=== PATIENT | female | born 1995 | race Caucasian/White ===

== ENCOUNTER → 2019-08-10 10:11 | Outpatient (CLI) | payer MEDICAID, SELFPAY ==
--- NOTE | 2019-08-10 10:16 | US_ITS ---
STUDY: ABDOMINAL ULTRASOUND REASON FOR EXAM: Female, 24 years old. RT ABDOMINAL PAIN TECHNIQUE: Transabdominal ultrasound was performed with real-time and static sauceda scale imaging. TECHNICAL QUALITY: Adequate. COMPARISON: None. FINDINGS: Liver: The liver measures 13.0 cm. There is normal echogenicity of the liver. The bile ducts are within normal limits. There is hepatic color flow. The direction of portal flow is hepatopetal. There is no demonstrated mass lesion. Portal vein measurement: Gallbladder: Normal distended gallbladder. The gallbladder wall measures 1.6 mm. There is a positive sonographic Clemons''s sign. There is no pericholecystic fluid. There are multiple echogenic structures within the gallbladder, consistent with multiple gallstones. Common Bile Duct (C.B.D.): The common bile duct measures 3.8 mm. Pancreas: Normal size of the head, body and tail of the pancreas. There is normal echogenicity of the pancreas. There is no demonstrated pancreatic mass or cyst. Spleen: Normal size of the spleen. The spleen measures 10 cm x 5.7 cm x 4.0 cm. Right Kidney: Normal size of the right kidney. The right kidney measures 10.9 cm x 5.7 cm x 3.6 cm. Normal renal cortex. The right cortex measures 1 cm. There is no demonstrated renal mass or cyst. There is an extra-renal pelvis of the right kidney. There is no distention of the renal calyces. Left Kidney: Normal size of the left kidney. The left kidney measures 10 cm x 5.2 cm x 6.5 cm. Normal renal cortex. The left cortex measures 2.5 cm. There is no demonstrated renal mass or cyst. There is no left hydronephrosis. Aorta: Unremarkable. I.V.C.: The IVC is patent. There is no ascites. US/Abdomen Complete IMPRESSION: Multiple gallstones. Positive sonographic Clemons''s sign. Electronically Signed: Harjinder Sommers, at 13:12 EST , Service support ,
== END ==
PROVIDERS: Family Provider Pediatrics; PCP Pediatrics; Referring Provider Nurse Practitioner Pediatrics; Visit Provider Nurse Practitioner Pediatrics
DX: R10.11 Right upper quadrant pain (principal)
CPT/HCPCS: 76700

== ENCOUNTER → 2019-08-19 14:16 | Outpatient (CLI) | payer MEDICAID, SELFPAY ==
[2019-08-15 12:41] VITALS: BMI 30.3
[2019-08-19 14:57] LABS: Absolute Lymphocyte Count 2.17 X10^3/uL (0.83-4.51); Absolute Neutrophil Count 2.9 X10^3/uL (2.0-7.7); Basophil# 0.01 X10^3/uL; Basophil% 0.2 % (0-1); Eosinophil# 0.03 X10^3/uL; Eosinophils% 0.5 % (0-5); Hematocrit 42.8 % (37-47); Hemoglobin 14.3 g/dL (12.0-15.0); Lymphocyte # 2.17 X10^3/ul (4.0); Mean Corp Hgb Conc 33.4 g/dL (32-36); Mean Corpuscular Hgb 28.7 pg (27.0-32.0); Mean Corpuscular Volume 85.9 fL (81-99); Mean Platelet Vol. 9.6 fl (6.2-12.0); Monocyte# 0.47 X10^3/uL; Monocyte% 8.5 % (0-10); NRBC Flagged by Analyzer 0 % (0-5); Neutrophil # 2.87 X10^3/uL (2.7-7.7); Neutrophil % 51.6 % (47-70); Platelet Count 271 K/mm3 (150-450); RBC Distribution Width CV 12.2 % (11.6-14.6); RBC Distribution Width SD 38.2 fl (35.1-43.9); Red Blood Count 4.98 M/mm3 (4.2-5.4); White Blood Count 5.6 K/mm3 (4.4-11.0)
[2019-08-19 15:19] LABS: Erythrocyte Sedimentation Rate 7 mm/hr (0-20)
[2019-08-19 15:40] LABS: ALB/GLOB Ratio 1.1 RATIO (0.9-2.4); AST(SGOT) 13 U/L (15-37); Alanine Aminotransfer ALT/SGPT 20 U/L (13-56); Albumin, Serum 4.5 g/dL (3.2-5.0); Alkaline Phosphatase 60 U/L (45-117); Anion Gap 4 (5-15); BUN 10 mg/dL (7-18); BUN/Creat Ratio 11.2 RATIO (10-20); CRP < 2.90 mg/L (0.0-3.0); Calcium,Total 9.3 mg/dL (8.5-10.1); Chloride 104 mmol/L (98-107); Creatinine, Serum 0.89 mg/dL (0.55-1.02); EST Glomerular Filtration Rate 84 mL/min (>60); Est Glom Filt Rate - Afr Amer 101 mL/min (>60); Globulin 4.1 g/dL (2.2-4.2); Glucose 97 mg/dL (74-106); Lipase 126 U/L (73-393); Potassium 3.8 mmol/L (3.5-5.1); Protein, Total 8.6 g/dL (6.4-8.2); Sodium Level 136 mmol/L (136-145)
== END ==
PROVIDERS: PCP Pediatrics; Referring Provider Surgery; Visit Provider Surgery
DX: K80.20 Calculus of gallbladder without cholecystitis without obstruction (principal)
CPT/HCPCS: 36415; 80053; 83690; 85025; 85652; 86140

== ENCOUNTER → 2019-08-24 08:57 | Outpatient (CLI) | payer MEDICAID, SELFPAY ==
[2019-08-15 12:41] VITALS: BMI 30.3
--- NOTE | 2019-08-24 08:58 | RAD_ITS ---
STUDY: CONTRAST UPPER GI SERIES AND SMALL BOWEL FOLLOW-THROUGH EXAMINATION. REASON FOR EXAM: Female, 24 years old. Right sided burning pain, on and off x 7 weeks -- Diagnosed with Crohn''s disease in 2010 -- loss of appetite -- pt refused small bowel series and refused to drink anymore barium for UGI FLUOROSCOPY TIME (if supplied): ( 61 seconds ) minutes/seconds TECHNIQUE: The patient ingested barium. Imaging of the esophagus, stomach and duodenum was obtained. COMPARISON: None. FINDINGS: The esophagus is unremarkable. There is no evidence of a mass lesion. No evidence of gastroesophageal reflux. The stomach and duodenum are unremarkable. No evidence of ulceration. No mass lesion is seen. The patient refused to drink further barium. The small bowel follow-through examination was canceled. RAD/Upper GI Dual Contrast IMPRESSION: Unremarkable esophagus and stomach. The patient refused the small bowel follow-through examination. Electronically Signed: Harjinder Sommers, at 14:41 EST , Service support ,
== END ==
PROVIDERS: PCP Pediatrics; Referring Provider Surgery; Visit Provider Surgery
DX: R10.9 Unspecified abdominal pain (principal)
CPT/HCPCS: 74246

== ENCOUNTER 2023-04-01 21:15 | Inpatient (IN) | payer MEDICAID, SELFPAY ==
--- NOTE | 2023-04-01 21:37 | HP.PCM.OB_ITS ---
History and Physical Date of Admission: 04/01/23 28-year-old s/p home delivery on 03/31/23 presented to [facility] for admission for her . Upon arrival here she had passage of a large clot which according to nursing staff appeared to be possible placenta. Patient throughout the day was refusing admission and refusing to be seen in the ER as well as refusing to be seen and evaluated by staff. Patient eventually agreed to admission and evaluation. Patient reports that she delivered a viable on 03/31/2023. She states that she had a planned home delivery without any medical personnel available. She states that she has a history of rapid labors and she plans this as she thought that everything would go without any complication as she delivered her last 1 at home without any problems. She states that she delivered the child and then her clamped the cord cut the cord and then gently pulled on the cord to deliver the placenta. She states that she felt that the placenta was delivered intact but is not sure because the placenta was then disposed of by her dogs in the neal. Patient reports that her bleeding has not been significant since arrival other than the one large clot approximately 4 hours ago. She denies any fevers, malodorous discharge, tears in the vaginal or perineal area or other concerns at this time. OBHX: x 3 SOCHX: Marijuana and tobacco use MEDHX: fibromyalgia Exam: GEN: female in NAD ABD: soft, fundus firm Speculum: no lacerations, Tiny clot at os, no placental tissue noted. TISSUE in question was evaluated- appears to just be a clot not tissue from placenta. Bedside ultrasound: bright white EM stripe,small area of heterogenous area ? clot but no absolute sign of retained POC. Assessment & Plan Assessment/Plan (1) Marijuana use: (2) Limited care: (3) Other curr cond-del w/ complication: PLAN: Plan s/p home delivery, with episode of heavy vaginal bleeding 1) CBC w/ diff 2) Monitor vaginal bleeding 3) Methergine IM then PO x 48hrs 4) UDS consented by patient 5) Tylenol and Motrin for pain 6) VS per protocol
[2023-04-01 21:47] VITALS: BP 138/87; PULSE 92; RESP 16; TEMP 36.6; O2SAT 99
--- NOTE | 2023-04-01 21:54 | NURSING ---
Pt was on Hotel status due to home delivery and infant in SCN. Pt admitted to this evening due to pt having concerns for possible retained placenta. came to bedside, completed a bedside evaluation, Ultrasound, and vaginal speculum exam. new orders were received to admit to , send CBC, Methergine x1 IM then PO, urine drug screen, and routine pp orders
[2023-04-01 22:13] VITALS: BMI 25.2
[2023-04-01 22:13] LABS: Absolute Neutrophil Count 9.7 X10^3/uL (2.0-7.7); Basophil# 0.06 X10^3/uL; Basophil% 0.4 % (0-1); Eosinophil# 0.15 X10^3/uL; Hematocrit 33.1 % (37-47); Lymphocyte % 23.7 % (19-41); Mean Corp Hgb Conc 33.2 g/dL (32-36); Mean Corpuscular Hgb 30.2 pg (27.0-32.0); Mean Corpuscular Volume 90.9 fL (81-99); Mean Platelet Vol. 8.9 fl (6.2-12.0); Monocyte# 0.89 X10^3/uL; Monocyte% 6.2 % (0-10); NRBC Flagged by Analyzer 0 % (0-5); Neutrophil # 9.68 X10^3/uL (2.7-7.7); Neutrophil % 67.5 % (47-70); Platelet Count 356 K/mm3 (150-450); RBC Distribution Width CV 14.4 % (11.6-14.6); Red Blood Count 3.64 M/mm3 (4.2-5.4); White Blood Count 14.4 K/mm3 (4.4-11.0)
[2023-04-01 22:34] VITALS: BP 110/79; PULSE 85; RESP 16; TEMP 36.1; O2SAT 98
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
[2023-04-02 01:24] LABS: Amphetamine Urine VISTA NEGATIVE (<1000 ng/mL); Barbiturate Urine VISTA NEGATIVE (< 200 ng/mL); Benzodiazepine Urine VISTA NEGATIVE (< 200 ng/mL); Cocaine Urine VISTA NEGATIVE (< 300 ng/mL); Ecstacy Urine VISTA NEGATIVE (< 500 ng/mL); Methadone Urine VISTA NEGATIVE (< 300 ng/mL); PCP Urine VISTA NEGATIVE (< 25 ng/mL); THC Urine VISTA POSITIVE (< 50 ng/mL); Vista UDS pH Range 6
--- NOTE | 2023-04-02 03:15 | NURSING ---
report given to PP RN. that rn to assume care of pt at this time
--- NOTE | 2023-04-02 09:33 | PCM.PROGNOTE ---
Subjective Subjective patient seen at bedside, doing well. Patient reports good pain control. lochia mild. reports no further clots. Objective Data Objective Data Vital Signs: Vital Signs Temp Pulse Resp BP Pulse Ox O2 Del Method 97 F L 85 16 110/79 98 Room Air 04/01/23 22:34 04/01/23 22:34 04/01/23 22:34 04/01/23 22:34 04/01/23 22:34 04/01/23 22:34 Oxygen Delivery Method Room Air Weight: 66.224 kg Body Mass Index (BMI) 25.2 Lab / Micro Data 04/01/23 21:45 Labs: Laboratory Results - last 24 hr 04/01/23 21:45: WBC 14.4 H, RBC 3.64 L, Hgb 11.0 L, Hct 33.1 L, MCV 90.9, MCH 30.2, MCHC 33.2, RDW Std Deviation 47.0 H, RDW Coeff of Giancarlo 14.4, Plt Count 356, MPV 8.9, Immature Gran % (Auto) 1.200 H, Neut % (Auto) 67.5, Lymph % (Auto) 23.7, [place] % (Auto) 6.2, Eos % (Auto) 1.0, Baso % (Auto) 0.4, Absolute Neuts (auto) 9.7 H, Absolute Lymphs (auto) 3.40, Nucleated RBC % 0 04/02/23 00:50: Urine Opiates Screen NEGATIVE, Urine Methadone Screen NEGATIVE, Ur Barbiturates Screen NEGATIVE, Ur Phencyclidine Scrn NEGATIVE, Ur Amphetamines Screen NEGATIVE, MDMA (Ecstasy) Screen NEGATIVE, U Benzodiazepines Scrn NEGATIVE, Urine Cocaine Screen NEGATIVE, U Cannabinoids Screen POSITIVE H, Ur Drug Screen Comment Physical Exam Const alert and oriented x3 General Appearance: cooperative HEENT normocephalic Neck General: normal visual inspection GI soft to palpation and non-distended GI Narrative: Fundus firm Extremity normal to inspection and no calf tenderness Skin no rashes or lesions noted Neuro oriented x3 and CN's II-XII intact bilaterally Psych mental status grossly normal Assessment & Plan Assessment/Plan (1) Other curr cond-del w/ complication: (2) Limited care: (3) Marijuana use: (4) Fibromyalgia: PLAN: Plan HD#1 , PPD 2 s/p home delivery- unattended, limited PNC CBC stable, lochia stable consider dc after social work consult
--- NOTE | 2023-04-02 09:51 | DCINST_ITS ---
Discharge Instructions Diet Discharge Diet: No restrictions Activity May resume sexual activity in: 6-8 weeks Dressing / Incision Call your doctor if you observe: Fever of 101 or Higher, Inability to urinate, Using more than 1 pad per hour and Uncontrolled pain Follow Up Care Please Follow Up With: Christy Olson MD When: 1-2 weeks post and again at 6 weeks post . [phone] Test Results: Test results from this visit will be discussed in further detail at your follow- up appointment, if applicable. Discharge Plan Admission Admit Date/Time: 04/01/23 21:15 Attending Provider: Christy Olson Primary Care Provider: Care Physician,Margaret Primary Discharge Orders/Prescriptions Referrals / Follow Up: Care Physician,No Primary [Primary Care Provider] - Disposition Disposition (needs filled in before D/C Order can be placed): Home, Self Care
[2023-04-02 10:00] VITALS: BP 120/83; PULSE 76; RESP 17; TEMP 36
[2023-04-02 10:05] VITALS: PULSE 76; RESP 17
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
--- NOTE | 2023-04-02 14:11 | NURSING ---
This assistant in nursing reviewed the documentation completed by Chikis Shin student nurse.
[2023-04-02 14:15] VITALS: BP 113/77; PULSE 83; RESP 16; TEMP 36.2
== END 2023-04-02 18:30 | disposition home or self-care (01) | DRG 561 ==
PROVIDERS: Admitting Provider Obstetrics & Gynecology; Visit Provider Obstetrics & Gynecology
DX: O72.2 Delayed and secondary postpartum hemorrhage (principal); O99.325 Drug use complicating the puerperium; F12.99 Cannabis use, unspecified with unspecified cannabis-induced disorder; M79.7 Fibromyalgia; O99.893 Other specified diseases and conditions complicating puerperium
CPT/HCPCS: 76815; 80307; 85025

== ENCOUNTER 2025-03-20 17:53 | Emergency (ER) | payer MEDICAID, SELFPAY ==
[2025-03-20 17:54] VITALS: BP 116/75; PULSE 87; RESP 16; TEMP 36.8; O2SAT 100
[2025-03-20 18:14] VITALS: BMI 16.5
[2025-03-20 18:32] LABS: Hematocrit 39.7 % (37-47); Hemoglobin 14.4 g/dL (12.0-15.0); Immature Granulocytes Count 0.020 X10^3/uL (0.0-0.0); Mean Corp Hgb Conc 36.3 g/dL (32-36); Mean Corpuscular Volume 83.8 fL (81-99); Mean Platelet Vol. 9.1 fl (6.2-12.0); NRBC Flagged by Analyzer 0 % (0-5); Platelet Count 338 K/mm3 (150-450); RBC Distribution Width CV 12.4 % (11.6-14.6); RBC Distribution Width SD 38.1 fl (35.1-43.9); Red Blood Count 4.74 M/mm3 (4.2-5.4); White Blood Count 9.4 K/mm3 (4.4-11.0)
[2025-03-20 18:51] LABS: Barbiturate Urine NEGATIVE (< 200 ng/mL); Benzodiazepine Urine NEGATIVE (< 200 ng/mL); PCP Urine NEGATIVE (< 25 ng/mL); THC Urine PRESUMPTIVE POSITIVE (< 50 ng/mL)
[2025-03-20 18:51] LABS: Internal QC Validated? YES +Cl - CLEAR BKGD
[2025-03-20 18:52] LABS: Pregnancy, Serum, hCG Quali. NEGATIVE Negative; Record Kit Lot#, Serum Preg. 947241
[2025-03-20 19:13] LABS: Anion Gap 14 (5-15); BUN 4 mg/dL (4-19); BUN/Creat Ratio 6.4 RATIO (10-20); Calcium,Total 9.5 mg/dL (7.6-11.0); Carbon Dioxide 24.3 mmol/L (21.0-32.0); Chloride 99 mmol/L (98-108); Estimated Creatinine Clearance 104.82 ml/min (50-250); Glucose 98 mg/dL (70-99); Potassium 2.6 mmol/L (3.3-5.1)
[2025-03-20 19:20] LABS: Alcohol, Blood (Medical)-Serum < 10.1 mg/dL (<=10.0)
--- NOTE | 2025-03-20 19:55 | EX.ED.DYSGE1 ---
HPI History of Present Illness Chief Complaint: Suicidal Narrative Narrative: Patient is a 30-year-old female with past medical history of HPV, PTSD, depression, anxiety, GERD, fibromyalgia, Crohn's disease who presents to the emergency department via PD after being pink slipped with a concern for having suicidal ideation. Patient states that she hears voices telling her that she needs a brief, yes and it is time for bed patient denies any specific plan on how she would kill herself but is having these thoughts. PD arrived to a bar where she told them that she had chips in her head. PFSH [facility] Medical History PTSD (post-traumatic stress disorder) HPV (human papilloma virus) infection Asthma depression Depression Anxiety Cholelithiasis Gastric ulcer GERD (gastroesophageal reflux disease) Anxiety and depression Fibromyalgia Crohn's disease Allergy/AdvReac Type Severity Reaction Status Date / Time amoxicillin Allergy Mild rash Verified 03/20/25 18:01 azithromycin Allergy Unknown Verified 03/20/25 18:01 Penicillins Allergy Unknown Verified 03/20/25 18:01 Family History Grandfather Heart disease Surgical History History of surgery History of colonoscopy (~2011) History of esophagogastroduodenoscopy (EGD) (~2011) Social History Smoking Status: Heavy Smoker (>10/day) ROS ROS ED ROS Narrative Constitutional: Denies any headache, lightness, dizziness, fevers, chills Eyes: Denies double vision Cardiovascular: Denies chest pain Respiratory: Denies shortness of breath Abdomen: Denies abdominal pain nausea vomit diarrhea : Denies urinary symptom Neurological: Denies any numbness, wheeze, tingling Musculoskeletal: Denies back pain Skin: Denies any rashes or lesions Psychiatric: Patient states that she is hearing voices and is having thoughts of killing herself however she has no plan. EXAM Physical Exam Narrative Exam Narrative: General: Patient lying in bed rest comfortably did not appear to be in acute distress Head: Atraumatic, normocephalic Eyes: PERRL bilaterally, EOMI bilaterally, no conjunctival injection noted Neck: Soft, supple, trachea midline Cardiovascular: Regular rate and rhythm Respiratory: Clear to auscultation bilaterally Abdomen: Soft, nondistended, no tenderness to palpation Extremities: +5/5 strength noted in the bilateral upper and lower extremities, radial pulses +2/4 in the bilateral extremities, no pedal edema exam Neurological: Patient following commands knew that she was at [facility] year is 2024 Skin: Warm, dry, tact no rashes or lesions noted Const Vital Signs: 03/20/25 17:54 03/20/25 20:47 Temperature 98.3 F Temperature Source Oral Pulse Rate 87 76 Respiratory Rate 16 18 Blood Pressure 116/75 122/74 H Blood Pressure Mean 88 90 Pulse Ox 100 97 Oxygen Delivery Method Room Air Room Air MDM MDM MDM Narrative Medical decision making narrative: Patient is a 30-year-old female who presents to the emergency department the chief complaint of suicidal ideation. On the differential diagnose includes but not limited to suicidal ideation, anxiety, depression, alcohol intoxication. Once workup is obtained reviewed she will be reevaluated. Patient's CBC was reviewed which showed a white blood count of 9.4, he was 14.4, plate count of 338. Patient sodium was 137, potassium was noted to be low indicating hypokalemia 2.6 she was ordered 40 mill equivalents of oral solution as well as intravenous replacement, magnesium level added on. Patient creatinine was 0.55. Patient magnesium level normal at 1.9, test negative. Patient's drug screen showed presumptive positive for cannabis alcohol level less than 10. Crisis will not evaluate the patient until her potassium is normalized. Nursing staff notified me that she is refusing the liquid potassium and the IV and is requesting pills. Patient was ordered 60 mill equivalents of oral supplementation here and she did take this. I went back into discussed with the patient the need for the IV potassium replacement and she states that she will not have an IV placed as she concern for airway verbalized that we will not inject air into her she states that there is always a chance of this and therefore she states that you will not place an IV in me and if you do I will [facility] the hospital. Patient's potassium will be repeated and further supplementation will be provided orally as needed. Patient case will be signed out to overnight provider to follow-up on the repeat potassium and add additional supplementation as needed. Patient once again states that he is suicidal but has no specific plan crisis will evaluate. Lab Data Labs: Laboratory Results - last 24 hr 03/20/25 03/20/25 18:20 18:28 WBC 9.4 RBC 4.74 Hgb 14.4 Hct 39.7 MCV 83.8 MCH 30.4 MCHC 36.3 H RDW Std Deviation 38.1 RDW Coeff of Giancarlo 12.4 Plt Count 338 MPV 9.1 Immature Gran % (Auto) 0.200 Neut % (Auto) 63.9 Lymph % (Auto) 28.2 [place] % (Auto) 6.9 Eos % (Auto) 0.6 Baso % (Auto) 0.2 Absolute Neuts (auto) 6.0 Absolute Lymphs (auto) 2.66 Nucleated RBC % 0 Sodium 137 Potassium 2.6 L* Chloride 99 Carbon Dioxide 24.3 Anion Gap 14 BUN 4 Creatinine 0.55 L Estim Creat Clear Calc 104.82 Est GFR (MDRD) Non-Af 128 BUN/Creatinine Ratio 6.4 L Glucose 98 Calcium 9.5 Magnesium 1.9 Serum , Qual NEGATIVE Urine Opiates Screen NEGATIVE U Buprenorphine Qual NEGATIVE Ur Oxycodone Screen NEGATIVE Urine Methadone Screen NEGATIVE Urine Fentanyl Screen NEGATIVE Ur Barbiturates Screen NEGATIVE Ur Phencyclidine Scrn NEGATIVE Ur Amphetamines Screen NEGATIVE U Benzodiazepines Scrn NEGATIVE Urine Cocaine Screen NEGATIVE U Cannabinoids Screen PRESUMPTIVE POSITIVE Ethyl Alcohol < 10.1 Discharge Plan Triage Chief Complaint: Suicidal ED Provider: Byron Killian Dx/Rx/DC Orders Clinical Impression: Suicidal ideation, Acute hypokalemia, Anxiety, Depression Primary Care Provider: Care Physician,No Primary Referrals: Care Physician,No Primary [Primary Care Provider] - Print Language: Danish
[2025-03-20 20:05] LABS: Magnesium 1.9 mg/dL (1.5-2.2)
[2025-03-20] MEDS: Potassium Chloride Oral Tablet 20 MEQ 60 MEQ PO (20:28)
--- NOTE | 2025-03-20 20:41 | ED.RN ---
Pt refusing to this RN having an IV or IV potassium, pt states this is a basic hospital and air will get in the line and it will kill me. This RN reassured the patient that scenario would not happen. Pt became aggitated and stated there is no way that I will ever allow you to put an IV in me. This nurse reported what the patient stated to Dr. Killian. This nurse also attempted to attach the cardiac cath lab manager to the patient, the patient stated I don't like this the pads are getting hot and you are shocking me. This RN reassured the patient that the cardiac cath lab manager was not capable of shocking her, the pt then ripped off all cardiac leads.
[2025-03-20 20:47] VITALS: BP 122/74; PULSE 76; RESP 18; O2SAT 97
--- NOTE | 2025-03-20 20:51 | ED.RN ---
Pt reports not taking any medication on a daily or as needed basis
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
[2025-03-21 00:23] LABS: Anion Gap 11 (5-15); BUN 4 mg/dL (4-19); BUN/Creat Ratio 6.0 RATIO (10-20); Calcium,Total 9.4 mg/dL (7.6-11.0); Carbon Dioxide 29.1 mmol/L (21.0-32.0); Chloride 98 mmol/L (98-108); Estimated Creatinine Clearance 77.90 ml/min (50-250); Glucose 88 mg/dL (70-99); Potassium 3.5 mmol/L (3.3-5.1)
[2025-03-21 04:00] VITALS: BP 121/73; PULSE 68; RESP 18; O2SAT 99
[2025-03-21 05:11] VITALS: BP 121/73; PULSE 65; RESP 18; TEMP 36.8; O2SAT 99
== END 2025-03-21 07:59 ==
PROVIDERS: Emergency Provider Emergency Medicine; Visit Provider Emergency Medicine
DX: R45.851 Suicidal ideations (principal); E87.6 Hypokalemia; F41.9 Anxiety disorder, unspecified; F32.A Depression, unspecified; K21.9 Gastro-esophageal reflux disease without esophagitis; J45.909 Unspecified asthma, uncomplicated
CPT/HCPCS: 36415; 80048; 80307; 82077; 83735; 84703; 85025; 99285